=== PATIENT | female | born 2000 | race Two or more races ===

== ENCOUNTER → 2024-10-22 | Outpatient (CLI) | payer MEDICAID, SELFPAY ==
--- NOTE | 2024-10-22 17:00 | XR_ITS ---
Examination: Ultrasound soft tissue neck TECHNIQUE: Multiple high resolution grayscale sonographic images soft tissue neck Exam date and time: October 22, 2024 1637 hours INDICATIONS: Bilateral anterior neck lymph nodes on CT examination May 21, 2024, the largest on the right side 14 mm largest on the left side 14 mm FINDINGS: Sonographic images right and left neck demonstrate multiple bilateral lymph nodes, the largest in the right anterior neck 2.2 x 0.8 x 1.4 cm, the largest in the left anterior neck 2.5 x 0.5 x 1.3 cm IMPRESSION: Enlarging cervical lymph nodes, recommend repeat CT soft tissue neck post intravenous contrast
== END | disposition home or self-care (01) ==
LOC: CDIM 16:49
PROVIDERS: PCP Nurse Practitioner Family; Referring Provider Nurse Practitioner Family; Visit Provider Nurse Practitioner Family
DX: R59.9 Enlarged lymph nodes, unspecified (principal)
CPT/HCPCS: 76536

== ENCOUNTER → 2025-03-11 | Outpatient (CLI) | payer MEDICAID, SELFPAY ==
--- NOTE | 2025-03-11 16:00 | XR_ITS ---
Examination: Breast ultrasound, unilateral, left complete Date and time of exam: March 11, 2025 1608 hours INDICATIONS: Left breast pain beginning several months ago Technique: Real-time wright scale ultrasonographic imaging performed left breast including all 4 quadrants as well as nipple retroareolar and axillary region. Findings: No cystic or solid mass IMPRESSION: BI-RADS Category 1: Negative study
== END | disposition home or self-care (01) ==
PROVIDERS: PCP Nurse Practitioner Family; Referring Provider Nurse Practitioner Family; Visit Provider Nurse Practitioner Family
DX: N64.4 Mastodynia (principal)
CPT/HCPCS: 76641